=== PATIENT | male | born 1990 | race Caucasian/White ===

== ENCOUNTER 2019-08-21 03:44 | Emergency (ER) | payer OTHER ==
[2019-08-21 04:16] VITALS: BP 151/87; PULSE 101; O2SAT 99
[2019-08-21] MEDS ORDERED: XYLOCAINE 1% HCL 20 ML MDV IJ ONE (04:26)
--- NOTE | 2019-08-21 04:26 | ERPHSYRPT ---
- History of Present Illness Time Seen by Provider: 08/21/19 04:21 Source: patient, other Exam Limitations: no limitations Patient Subjective Stated Complaint: pt came to er after falling at work from 5 feet height, laceration to back of head 4.5 cm long. pt states he landed on a rock after the fall states he had blurred vision for about three seconds. wound on skull is bleeding small amount. Triage Nursing Assessment: pt alert and oriented. holding pressure to back of head at this time, states he is not having any pain. Physician History: patient came to ER after falling at work from 5 feet height, laceration to back of head 4.5 cm long. pt states he landed on a rock after the fall states he had blurred vision for about three seconds. wound on skull is bleeding small amount. Timing/Duration: today Associated Symptoms: denies symptoms Allergies/Adverse Reactions: No Known Drug Allergies Allergy (Unverified 08/21/19 04:17) Home Medications: No Reportable Medications [No Reported Medications] 08/21/19 [History] Hx Tetanus, Diphtheria Vaccination/Date Given: Yes (2017) - Review of Systems Constitutional: No Symptoms Eyes: No Symptoms Ears, Nose, & Throat: No Symptoms Respiratory: No Symptoms Cardiac: No Symptoms Abdominal/Gastrointestinal: No Symptoms Musculoskeletal: No Symptoms Skin: No Symptoms Neurological: No Symptoms Psychological: No Symptoms Endocrine: No Symptoms - Past Medical History Pertinent Past Medical History: No - Past Surgical History Past Surgical History: No Gastrointestinal: Other Other Surgical History: internal hemmorhoid banding - Social History Smoking Status: Never smoker Exposure to second hand smoke: No Drug Use: none - Nursing Vital Signs Nursing Vital Signs: Initial Vital Signs Temperature 98.6 F 08/21/19 03:54 Pulse Rate 101 H 08/21/19 03:54 Respiratory Rate 16 08/21/19 03:54 Blood Pressure 151/87 08/21/19 03:54 O2 Sat by Pulse Oximetry 99 08/21/19 03:54 Pain Scale Pain Intensity 0 - Physical Exam General Appearance: no apparent distress Eye Exam: PERRL/EOMI Ears, Nose, Throat Exam: normal ENT inspection Neck Exam: normal inspection Respiratory Exam: normal breath sounds Cardiovascular Exam: regular rate/rhythm Back Exam: normal inspection Extremity Exam: normal inspection Neurologic Exam: alert, oriented x 3, cooperative, 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 nml as tested, nml cerebellar function, nml station & gait Skin Exam: normal color, laceration (4.5 cms on occipital area) SpO2: 99 Procedures - Laceration/Wound Repair Occipital Wound Location: head (occipital area) Wound Length (cm): 4.5 Wound's Depth, Shape: superficial, irregular Wound Explored: clean Irrigated: Yes Hibiclens Prep: Yes Anesthesia: local, 1% Lidocaine Volume Anesthetic (ccs): 5 Wound Debrided: minimal Wound Repaired With: [place] Number of Sutures: 9 Layer Closure?: No - Course Nursing assessment & vital signs reviewed: Yes Ordered Tests: Active Orders 24 hr Category Date Time Status Clean Catch Urine Specimen STAT Care 08/21/19 04:18 Active Urine Triage Profile Stat Lab 08/21/19 Uncollected - Progress Progress: improved Counseled pt/family regarding: diagnosis, need for follow-up (jazmyn removal in 10 days) - Departure Departure Disposition: Home Clinical Impression: Laceration of scalp without complication Qualifiers: Encounter type: initial encounter Qualified Code(s): S01.01XA - Laceration without foreign body of scalp, initial encounter Condition: Stable Critical Care Time: No Instructions: Laceration Repair With Jazmyn (DC) Additional Instructions: staple removal in 10 days. STEVEN CUELLAR was seen on 08/21/19 n the Emergency Room. At that time you were treated for an emergent condition, during your visit Laboratory, Radiology and/ or other procedures may have been ordered. It is very important that you follow- up with your Primary Care Physician within the next 24-48 hours to review your Emergency Room visit and the final results of testing that was ordered. Some test results such as Urine Cultures, Blood Cultures, and other cultures if ordered will not be finalized for 24-48 hours. If you do not have a Primary Care Provider please call the medical records department at [phone] ext [phone] to obtain a copy of your results or you may sign into our patient portal to obtain these results by visiting us @ [email or web address] and completing the following steps: 1. Click on the Patient Portal link 2. Click the Patient Self Enrollment Link to complete the enrollment form and entering your 3. Once the enrollment form is completed you will receive an email with a temporary ID and password at the email address you provided. 4. Next choose a user name and password. Your user name must be at least 4 characters long and your password must be at least 4 characters long. 5. Choose a security question from the list and provide your answer to the question. If you already have signed into the Health Portal you may access your Health Care Information 19/05 by the following steps: 1. Login to our website @ [email or web address] 2. Enter your original user name and password. FAQS [facility] Portal is an online tool that contains your Lab Results, Radiology Reports, Visit History, Discharge Instructions and Health Summary Lab and Radiology Results will not be available for 72 hours on the portal. The Portal is a secure site, passwords are encryted and URLs are re-written so they cannot be copied and pasted. You and authorized family members are the only ones who can access your Portal. Also there is a timeout feature that protects your information if you leave the Portal page open. If you have technical difficulty please use the Contact Us link on the page this will allow you to submit any questions you have regarding the Portal or you may contact the Medical Record Department at [phone] ext [phone].
[2019-08-21 05:01] LABS: Amphetamine,Urine NEGATIVE (NEGATIVE); Barbiturate,Urine NEGATIVE (NEGATIVE); Benzodiazepine,Urine NEGATIVE (NEGATIVE); Cocaine,Urine NEGATIVE (NEGATIVE); Methadone,Urine NEGATIVE (NEGATIVE); Opiate,Urine NEGATIVE (NEGATIVE); PCP,Urine NEGATIVE (NEGATIVE); THC,Urine NEGATIVE (NEGATIVE)
== END 2019-08-21 04:48 ==
LOC: ED 03:44
DX: S01.01XA Laceration without foreign body of scalp, initial encounter (principal); W17.89XA Other fall from one level to another, initial encounter; Y92.64 Mine or pit as the place of occurrence of the external cause; Y99.0 Civilian activity done for income or pay
CPT/HCPCS: 12002; 80307; 96372; 99283